=== PATIENT | male | born 1980 | race Caucasian/White ===

== ENCOUNTER 2025-02-23 17:17 | Inpatient (IN) | payer SELFPAY ==
[~2025-02-23] VITALS: Ht 177.8 cm; Wt 181.8 kg
[2025-02-23 17:39] LABS: BASOPHILS # (AUTO) 0.1 X10'3 (0-0.2); BASOPHILS % (AUTO) 0.6 % (0-1); EOSINOPHILS % (AUTO) 0.4 % (0-6); HEMATOCRIT 46.9 % (42.0-52.0); HEMOGLOBIN 15.4 g/dl (14.0-17.9); LYMPHOCYTES # (AUTO) 1.7 X10'3 (1.1-4.8); MEAN CORPUSCULAR HEMOGLOBIN 26.4 PG (27.0-31.0); MEAN CORPUSCULAR HGB CONC 32.8 g/dL (33.0-36.5); MEAN CORPUSCULAR VOLUME 80.5 FL (78-98); MEAN PLATELET VOLUME 8.8 FL (7.4-10.4); MONOCYTES # (AUTO) 0.8 X10'3 (0-0.9); MONOCYTES % (AUTO) 8.9 % (2-12); NEUTROPHILS # (AUTO) 6.7 X10'3 (1.8-7.7); NEUTROPHILS % (AUTO) 72.1 % (42-75); PLATELET COUNT 288 X10'3 (140-440); RED BLOOD COUNT 5.82 X10'6 (4.70-6.10); RED CELL DISTRIBUTION WIDTH 15.1 % (11.5-14.5); WHITE BLOOD COUNT 9.3 X10'3 (4.5-11.0)
[2025-02-23 18:04] LABS: ALBUMIN 3.5 G/DL (3.4-5.0); ANION GAP 11 (8-16); BLOOD UREA NITROGEN 20 MG/DL (7-18); BUN/CREATININE RATIO 17.1 (10.0-20.0); CALCIUM 9.2 MG/DL (8.5-10.1); CHLORIDE 99 MMOL/L (99-107); CREATININE 1.17 MG/DL (0.60-1.10); GLUCOSE 155 MG/DL (70-104); POTASSIUM 4.4 MMOL/L (3.5-5.1); PRO BRAIN NATRIURETIC PEPTIDE < 30 PG/ML (0-125); SODIUM 137 MMOL/L (135-145); TOTAL CARBON DIOXIDE 26.7 MMOL/L (24-32); eCRCL 82 ML/MIN; eGFR 67 ML/MIN
--- NOTE | 2025-02-23 18:16 | ELECTROCARDIOGRAPH REPORT ---
[facility] Test Date: 2025-02-23 Test Time: 17:21:55 Pat Name: FATEMEH GRACE Department: EMERGENCY ROOM [id number] Room: Gender: M [employer]r: : 1980 Requested By: TIFFANY MONROE Order Number: [id number] Reading MD: Dr. Sanchez Appiah Measurements Intervals [place] Rate: 105 P: 53 MA: 149 QRS: -53 QRSD: 98 T: 56 QT: 338 QTc: 447 Interpretive Statements Sinus tachycardia Probable left atrial enlargement S1,S2,S3 pattern RSR' in V1 or V2, probably normal variant ST elev, probable normal early repol pattern Electronically Signed On 02-23-2025 18:46:[address] Sanchez Appiah Please click the below link to view image of tracing.
--- NOTE | 2025-02-23 18:34 | RADIOLOGY REPORT ---
EXAMINATION: Chest x-ray 1 view CLINICAL HISTORY: CP COMPARISON: None FINDINGS: Right costophrenic angle partially excluded. No dominant consolidations in the visualized lung butts . No definite pleural effusion or pneumothorax. The cardiomediastinal silhouette appears within bravo l limits given technique. IMPRESSION: Limited study. No acute cardiopulmonary findings as visualized.
--- NOTE | 2025-02-23 19:33 | Physician Documentation ---
History of Present Illness ~ Chief Complaint: Chest Pain Stated Complaint: "I JUST HAD A HEART ATTACK/FELL AND HIT HEAD" Time Seen by MD: 19:06 Mode of Arrival: Dropped Off HPI This is a 44-year-old male who reports history of a clot and my lung prese nting for two months of reported left-sided nonradiating chest pain that is worse with palpation. Patient is a poor historian and changes topic frequently not answering questions directly. Patient reports shortness of breath though when questioned on duration and aggravating factors patient reports just short of breath all the time. Patient reports that he was treated for the clot in my lung 2-3 months prior with a hospitalization of approximately nine days, patient reports he was on a drip. Patient reports that he has had multiple episodes of syncope as well with an unclear timeline. Medication Reconciliation Allergies: Coded Allergies: No Known Allergies (Unverified , 02/23/25) Miscellaneous Medications Home Med List (No Home Medications), (Reported) Past Medical History Past Medical History: Pulmonary Embolism Review of Systems ROS Left-sided nonradiating chest pain as stated above in the HPI, otherwise all systems are reviewed and negative. Physical Exam Vital Signs: Temperature: 98.4, Source: Temporal, Heart Rate: 97, Respiratory Rate: 22, BP: 138/97, Pulse Oximetry: 94, Weight: 181.820 Oxygen Flow Rate: 0 Physical Exam VITALS: Reviewed and as above. GENERAL: Nontoxic appearing, no apparent distress. RESPIRATORY: No increased work of breathing, no respiratory distress, speaking in full clear sentences, clear lung sounds in all butts CHEST: Tenderness elicited with palpation to left chest wall CV: Regular rate and rhythm no murmur BACK: No CVA tenderness GI: Soft, nondistended, non tender, no rebound, no guarding, bowel sounds present MUSCULOSKELETAL: SKIN: Warm and dry no rash NEURO: Alert and oriented times four, GCS 15 PSYCH: Bizarre mood and affect, no agitation, voicing no SI or HI Progress Progress Note 0013: I spoke with hospitalist resident Dr. Sargent who kindly accepts patient for admission Results/Orders Results/Orders Orders - KENNY MERCHANT TRAVEL PT Cta Chest Pe (02/23/25 22:14) Page Hospitalist (02/23/25 23:43) Fill Out Med Reconciliation (02/23/25 23:43) Completed Orders - KENNY MERCHANT TRAVEL PT D-Dimer (02/23/25 19:34) Normal Saline 1000ml (Sodium Chloride 10 (02/23/25 21:35) Cta Chest Pe (02/23/25 22:14) Iohexol 350mg/Ml 100ml (Omnipaque 350mg/ (02/23/25 22:20) Vital Signs 02/23/25 02/23/25 02/23/25 02/23/25 17:18 18:32 18:40 20:35 Temp 98.4 Pulse 110 97 96 Resp 16 18 22 30 B/P (MAP) 144/92 138/97 (111) 123/78 (93) Pulse Ox 98 94 95 O2 Flow Rate 0 0 0 02/23/25 02/23/25 21:46 23:57 Pulse 98 86 Resp 24 24 B/P (MAP) 148/74 (98) 167/72 (103) Pulse Ox 94 92 O2 Flow Rate 0 0 Laboratory Tests Test 02/23/25 17:28 02/23/25 19:55 White Blood Count 9.3 Red Blood Count 5.82 Hemoglobin 15.4 Hematocrit 46.9 Mean Corpuscular Volume 80.5 Mean Corpuscular Hemoglobin 26.4 L Mean Corpuscular Hemoglobin Concent 32.8 L Red Cell Distribution Width 15.1 H Platelet Count 288 Mean Platelet Volume 8.8 Neutrophils (%) (Auto) 72.1 Lymphocytes (%) (Auto) 18.0 L Monocytes (%) (Auto) 8.9 Eosinophils (%) (Auto) 0.4 Basophils (%) (Auto) 0.6 Neutrophils # (Auto) 6.7 Lymphocytes # (Auto) 1.7 Monocytes # (Auto) 0.8 Eosinophils # (Auto) 0.0 Basophils # (Auto) 0.1 CBC Comment D-Dimer 0.73 H D-Dimer Comment Sodium Level 137 Potassium Level 4.4 Chloride Level 99 Carbon Dioxide Level 26.7 Anion Gap 11 Blood Urea Nitrogen 20 H Creatinine 1.17 H Estimated GFR/1.73 m2 67 BUN/Creatinine Ratio 17.1 Glucose Level 155 H Calcium Level 9.2 Troponin I High Sensitivity 4 5 Pro-B-Type Natriuretic Peptide < 30 Albumin 3.5 Chemistry Comments Troponin I High Sens Percent Delta 25 Troponin I Hi Sens Absolute Change 1 EKG/XRAY/CT/US/VASC/MRI EKG : Additional Comment EKG at 1721 interpreted by myself as sinus tachycardia at a rate of 105, left axis deviation, nonspecific ST changes Chest X-Ray : Additional Comments Exam: CHEST,SINGLE VIEW EXAMINATION: Chest x-ray 1 view CLINICAL HISTORY: CP COMPARISON: None FINDINGS: Right costophrenic angle partially excluded. No dominant consolidations in the visualized lung butts. No definite pleural effusion or pneumothorax. The cardiomediastinal silhouette appears within normal limits given technique. IMPRESSION: Limited study. No acute cardiopulmonary findings as visualized. Electronically Signed by:NIKKO OLEARY MD Date & Time: 02/23/251831 Dictated by: NIKKO OLEARY MD Dictation date and time: 02/23/25 173 I have reviewed and agree with the radiology report. I have reviewed and interpreted the imaging as: No focal consolidation or pneumothorax CT : Impression CTA Chest with intravenous contrast INDICATION: CP and SOB COMPARISON: None TECHNIQUE: Multidetector spiral CTA of the chest was performed of the chest with intravenous contrast. PULMONARY ANGIOGRAPHY PROTOCOL was utilized using a bolus- tracking technique centered on the main pulmonary artery. Axial, coronal and s agittal multiplanar and MIP reformats were performed. Radiation Dose : 1. Chest: CTDI volume is 24.91 mGy. Dose-length product is 982.8 mGy*cm The dose indicators for CT are the volume Computed Tomography (CT) Dose Index (CTDIvol) and the Dose Length Product (DLP), and are measured in units of mGy and mGy-cm, respectively. These indicators are not patient dose, but values generated from the CT scanner acquisition factors. The report includes radiation exposure data for exposures received during this examination. Findings: Pulmonary artery: No pulmonary embolism The main pulmonary artery is enlarged, measuring 3.7 cm. The ascending thoracic aorta measures 3.1 cm. Lower neck: Normal thyroid. Lungs: No focal consolidation, pleural effusion or pneumothorax. Heart/Vascular Structures: Normal heart size. No pericardial effusion. Lymph Nodes: No adenopathy Musculoskeletal: No acute osseous abnormality. Soft tissues: Normal. Upper abdomen: Limited portions of the upper abdomen are unremarkable. IMPRESSION: 1. No pulmonary embolism. 2. No acute thoracic finding. 3. Dilated main pulmonary artery. Electronically Signed by:NITO SWEENEY MD Date & Time: 02/23/252308 Dictated by: NITO SWEENEY MD Dictation date and time: 02/23/252308 Heart Score: Heart Score Response (Comments) Value History Moderate Suspicious 1 EKG Repolarization Disturb 1 Age 45-64 1 Risk Factors 1 or 2 risk factors 1 Troponin Normal limit 0 Total 4 Medical Decision Making Findings This 44-year-old male presented with two months of left-sided chest pain, he did report history of PE, a CTA was performed and did not demonstrate evidence of pulmonary embolism however there was evidence of dilated pulmonary artery with concern for pulmonary hypertension. I believe patient would benefit from admission for rule out of pulmonary hypertension. Additionally while patient did not have elevated troponins chest pain was moderately suspicious and or some repolarization abnormalities on EKG given patient's risk factors his heart score is four additionally supporting admission for further risk stratification evaluation, management. Patient is hemodynamically stable and otherwise well- appearing in the emergency department. Inpatient team contacted and kindly accepts patient for admission. Differential Dx:Considerations: Include: angina, aortic dissection, chest wall pain, cholelithiasis, CHF, costochondritis, gastritis, herpes zoster, myocardial infarction, pericarditis, pancreatitis, pneumonia, pneumothorax, pulmonary embolus Departure Disposition: 09 ADMITTED INPATIENT Admitted to Inpatient Unit: to hospitalist Impression: Primary Impression: Chest pain Qualified Codes: R07.9 - Chest pain, unspecified Condition: Guarded Referrals: NO PRIMARY CARE PROVIDER (PCP) Education Educated: Patient Educated regarding: diagnosis, prognosis Signature Scribe Signature: No scribe Attestation: The note accurately reflects work and decisions made by me.TYSON Lew 02/24/25 01:21 KENNY MERCHANT Feb 23, 2025 19:33
[2025-02-23 20:00] LABS: D-DIMER 0.73 MG/L FEU (0-0.50)
[2025-02-23] MEDS: normal saline 1000ML IV soln IVB ONE (21:45)
[2025-02-23] MEDS ORDERED: iohexol 350MG/ML 100ml bottle IV ONE (22:20)
--- NOTE | 2025-02-23 23:11 | RADIOLOGY REPORT ---
CTA Chest with intravenous contrast INDICATION: CP and SOB COMPARISON: None TECHNIQUE: Multidetector spiral CTA of the chest was performed of the chest with intravenous contrast . PULMONARY ANGIOGRAPHY PROTOCOL was utilized using a bolus-tracking technique centered on the main p ulmonary artery. Axial, coronal and sagittal multiplanar and MIP reformats were performed. Radiation Dose : 1. Chest: CTDI volume is 24.91 mGy. Dose-length product is 982.8 mGy*cm The dose indicators for CT are the volume Computed Tomography (CT) Dose Index (CTDIvol) and the Dose Length Product (DLP), and are measured in units of mGy and mGy-cm, respectively. These indicators are not patient dose, but values generated from the CT scanner acquisition factors. The report includes radiation exposure data for exposures received during this examination. Findings: Pulmonary artery: No pulmonary embolism The main pulmonary artery is enlarged, measuring 3.7 cm. The ascending thoracic aorta measures 3.1 c m. Lower neck: Normal thyroid. Lungs: No focal consolidation, pleural effusion or pneumothorax. Heart/Vascular Structures: Normal heart size. No pericardial effusion. Lymph Nodes: No adenopathy Musculoskeletal: No acute osseous abnormality. Soft tissues: Normal. Upper abdomen: Limited portions of the upper abdomen are unremarkable. IMPRESSION: 1. No pulmonary embolism. 2. No acute thoracic finding. 3. Dilated main pulmonary artery.
[2025-02-24] VITALS (9 sets, daily range): BP systolic 113–144; BP diastolic 64–76; PULSE 80–102; RESP 18–23; TEMP 97.3–97.6; O2SAT 94–98
[2025-02-24] MEDS ORDERED: NO HOME MEDS (01:22)
[2025-02-24] MEDS ORDERED: magnesium Cl slow-release 64mg tablet PO PRN (01:45)
[2025-02-24] MEDS ORDERED: mag hydrox/Alum hydrox/simeth 30ml oral suspension PO PRN (01:45)
[2025-02-24] MEDS ORDERED: morphine 2 MG/ML inj. syringe IV PRN ×2 (01:45)
[2025-02-24] MEDS ORDERED: HYDROcodone/acetaminophen 5mg/325mg tablet PO PRN (01:45)
[2025-02-24] MEDS ORDERED: magnesium hydroxide 30ml (MOM) UD suspension PO PRN (01:45)
[2025-02-24] MEDS ORDERED: potassium Cl 20 mEq SR tablet PO PRN ×2 (01:45)
[2025-02-24] MEDS ORDERED: potassium Cl 40MEQ/1/2NS 520ml 520 ML IV PRN (01:45)
[2025-02-24] MEDS ORDERED: acetaminophen 325mg tablet PO PRN ×2 (01:45)
[2025-02-24] MEDS ORDERED: ondansetron/PF 4mg/2ml inj IV PRN (01:45)
[2025-02-24] MEDS ORDERED: nitroGLYCERIN 0.4mg SUBLingual tab SL PRN (01:45)
[2025-02-24] MEDS ORDERED: magnesium sulf-water 4G/100mL 100 ML IV PRN (01:45)
[2025-02-24] MEDS ORDERED: magnesium sulf-water 2g/50mL 50 ML IV PRN (01:45)
[2025-02-24] MEDS ORDERED: HYDROcodone/acetaminophen 10/325mg tab PO PRN (01:45)
--- NOTE | 2025-02-24 02:09 | HISTORY AND PHYSICAL-Residence ---
History & Physical Providers to CC Resident Creating Document: CORTEZ ZAMORANO RES ~ History of Present Illness Reason for Admit\Complaint: Chest pain History of Present Illness 44-year-old male (poor historian) with past medical history of obesity, GUSTAVO, pulmonary embolism presented to the ER with a chief complaints of left-sided chest pain for the past two months. Endorses chest pain over the left chest, nonradiating, rated five to 6/10 on not associated with syncope, diaphoresis, no aggravating and relieving factors. He do reports shortness of breath for most of the times without orthopnea and PND. He reports multiple episodes of syncope. He endorses that he had a feeling of heart attack and fell and hit head. Denied slurring of speech weakness, palpitations, deviation of angle of mouth, abdominal pain, abdominal distention. Discussed the code status with the patient and patient wants to be in full code. Allergies: Coded Allergies: No Known Allergies (Unverified , 02/23/25) Home Medications Home Medications Active Reported No Home Medications (Home Med List) Each Past Medical History Past Medical History Pulmonary embolism Past Surgical History Surgical History Comment Could not able to elicit. Past Social History Social History Comment He is a poor historian and could not able to recall his personal social history. ROS ROS reviewed in full and negative except for positive pertinent as in HPI Exam Vitals: Vital Signs Date Time Temp Pulse Resp B/P (MAP) Pulse Ox O2 Delivery O2 Flow Rate FiO2 02/23/25 23:57 86 24 167/72 (103) 92 0 02/23/25 17:18 98.4 General: GENERAL: Drowsy, sleepy. Nontoxic appearing, no apparent distress. Obese HEENT: No icterus, pallor, cyanosis. No JVD and carotid upstroke RESPIRATORY: No increased work of breathing, no respiratory distress, speaking in full clear sentences, clear lung sounds in all butts CHEST: Tenderness elicited with palpation to left chest wall. CV: Regular rate and rhythm no murmur/gallop/rubs BACK: No CVA tenderness GI: Soft, nondistended, non tender, no rebound, no guarding, bowel sounds present MUSCULOSKELETAL: Left lower extremity with swelling. SKIN: Warm and dry no rash NEURO: No focal neurological deficits PSYCH: Bizarre mood and affect, no agitation, voicing no SI or HI Diagnostic Data Last Recorded Lab Results: 6/28/25 1728 02/23/25 1728 Diagnostic Data: Laboratory Tests Test 02/23/25 17:28 D-Dimer 0.73 MG/L FEU (0-0.50) H D-Dimer Comment Advance Care Planning Advanced Care planning: Add on additional 30 min Additional Plan Chest pain likely secondary to unstable angina Vitals are stable but blood pressure is a little bit on higher side 150s to 160s. EKG sinus tachycardia with a heart rate of105, left axis deviation, nonspecific ST changes Troponins are negative ProBNP is less than 30 Chest x-ray is normal CT angiography was done in the ER with a suspicious for pulmonary embolism in view of elevated D-dimer and previous history of pulmonary embolism-normal steady but with pulmonary artery hypertension. On nitro, aspirin 81 mg, atorvastatin Patient needs the Lexiscan and shank stapler consultation in the a.m. Patient is in NPO and we Ordered Lexiscan. We will follow up with the results On morphine for pain management Code status: Full code DVT prophylaxis: SubQ heparin PT: Ordered Progress: Guarded Cortez Zamorano IM resident I discussed the case with the resident team I do not have a good explanation for the syncope episodes, the somnolence and the frequent falls I have asked for a CT Head SKIP, An ABG and Utox, TSH and echocardiogram We will re evaluate based on the results Date of Service: Feb 24, 2025 Billing Provider: BEBA SÁNCHEZ MD, VENKATESH, RES Feb 24, 2025 02:09 BEBA SÁNCHEZ MD Feb 24, 2025 04:34
[2025-02-24] MEDS: aspirin 325mg tablet PO ONE (02:31)
[2025-02-24] MEDS: atorvastatin 20mg tablet PO SCH (02:32)
[2025-02-24 02:54] LABS: APTT 26 SECONDS (22-32); PROTHROMBIN TIME 10.6 SECONDS (9.0-12.0)
[2025-02-24 02:59] LABS: HEMOGLOBIN A1C 5.9 % (4.5-6.2)
[2025-02-24 03:02] LABS: PHOSPHORUS 4.7 MG/DL (2.3-4.5)
[2025-02-24 05:11] LABS: ABG BASE EXCESS 0.8 mmol/L (-2.0-3.0); ABG HCO3 27.4 mmol/L (21.0-28.0); ABG OXYGEN SATURATION 97.1 % (94.0-98.0); ABG PCO2 (T) 51.3 mmHg (35.0-48.0); ABG PH (T) 7.346 (7.350-7.450); ALLEN'S TEST Modified; FCOHb 0.4 % (0.5-1.5); FHHb 2.9 % (0.0-5.0); FO2Hb 96.7 % (94.0-98.0); TOTAL HEMOGLOBIN 15.1 G/dl (13.5-17.5)
--- NOTE | 2025-02-24 06:52 | RADIOLOGY REPORT ---
EXAM: CT CT HEAD INDICATION: Altered mental state TECHNIQUE: CT of the head without intravenous contrast. Radiation Dose : 1. Head: CT Dose: CTDI volume is 67.33 mGy. Dose-length product is 1269.81 mGy*cm The dose indicators for CT are the volume Computed Tomography (CT) Dose Index (CTDIvol) and the Dose Length Product (DLP), and are measured in units of mGy and mGy-cm, respectively. These indicators are not patient dose, but values generated from the CT scanner acquisition factors. The report includes radiation exposure data for exposures received during this examination. COMPARISON: None FINDINGS: There is no evidence of acute intracranial hemorrhage, extra-axial collection, mass effect, midline s hift, herniation or hydrocephalus. The ventricles, sulci and cisterns are age appropriate. The tucker-white differentiation is intact. The visualized paranasal sinuses and mastoid air cells are clear. The surrounding soft tissues and osseous structures are unremarkable. IMPRESSION: 1. No acute intracranial abnormality. Radiation optimization: All CT scans at this facility use at least one of these dose optimization shanique hniques: automated exposure control mA and/or kV adjustment per patient size (includes targeted exam s where dose is matched to clinical indication) or iterative reconstruction.
[2025-02-24] MEDS: K and/or MAG REPLACEMENT MC SCH (08:00)
[2025-02-24] MEDS: heparin, porcine 5000 units/ml vial SQ SCH (08:00)
[2025-02-24] MEDS: docusate sod 100mg capsule PO SCH (08:00)
--- NOTE | 2025-02-24 10:47 | PROGRESS NOTE- Residence ---
Progress Note - Resident Providers to CC Resident Creating Document: WALI FERNANDES CC: JUANITA NÚÑEZ MD ~ Antibiotic Timeout Antibiotic Ordered?: No Subjective Patient was seen and examined at bedside this morning. Patient is psychotic, stating that an entity was trying to help him with his blood clots and "pushed too hard on his blood vessels", he states he needs food for his "electrical system". He is very reluctant to stay in NPO, I spent several minutes explaining the need of the Lexiscan and the need to stay NPO for now. At the end he seemed to partially understand. Denied chest pain at the moment Objective Vital Signs Date Time Temp Pulse Resp B/P (MAP) Pulse Ox O2 Delivery O2 Flow Rate FiO2 02/24/25 07:38 86 02/24/25 07:15 20 94 Room Air* 0 21 02/24/25 04:40 112/76 (88) 02/23/25 17:18 98.4 Result Diagram: 02/23/25 1728 02/24/25 0213 General: Morbidly obese, awake, alert, significantly agitated and poorly cooperative HEENT: No pallor present, no icterus, moist mucous membranes Neck: No masses and tenderness Resp: Unlabored. Lungs clear to auscultation bilaterally. Chest: Normal expansion Cardiovascular: Regular Rate and rhythm, normal S1 and S2 without murmur, rub or gallop Abdomen: Soft and nontender, no organomegaly, no guarding and rigidity, bowel sounds present Neuro: No focal weakness in the upper and lower limb muscles, power of the muscles 5/5 bilateral upper and lower extremities, normal reflexes bilaterally. Cranial nerves intact Extremities: Left lower extremity discoloration and scabs. No cyanosis,clubbing or edema Skin: Warm and Dry. No lesions Psych: Psychotic, disorganized speech Coagulation Studies Laboratory Tests Test 02/23/25 17:28 02/24/25 02:13 D-Dimer 0.73 MG/L FEU (0-0.50) H D-Dimer Comment Prothrombin Time 10.6 SECONDS (9.0-12.0) INR International Normalized Ratio 1.0 INR Activated Partial Thromboplast Time 26 SECONDS (22-32) Coagulation Comments Plan Plan Chest pain, possible unstable angina History of PE. Acute PE ruled out Possible pulmonary hypertension Vitals are stable No chest pain at the moment EKG sinus tachycardia with a heart rate of105, left axis deviation, nonspecific ST changes Troponins are negative ProBNP is less than 30 Chest x-ray is normal CT angiography ruled out pulmonary embolism. However, did show dilated pulmonary artery Continue nitro p.r.n., aspirin 81 mg, atorvastatin Awaiting Lexiscan/echocardiogram Continue NPO. Okay to eat if Lexiscan is going to take more than 4 hours to be performed On morphine for pain management Psychosis Patient is psychotic with disorganized speech May need psychiatry evaluation once medically cleared Code status: Full code DVT prophylaxis: SubQ heparin PT: Ordered Progress: Guarded Disposition: Continue care in PCU with tele monitoring. Pending Christen Zarate MD Internal Medicine Resident PGY-1 Date of Service: Feb 24, 2025 Billing Provider: JUANTIA NÚÑEZ MD, LEONARDO LUIS Feb 24, 2025 10:47
--- NOTE | 2025-02-24 19:07 | CARDIOLOGY REPORT ---
APPROVED REPORT EXAM: Comprehensive 2D, Doppler, and color-flow Echocardiogram. Patient Location: [address] Heart Rate: 90's bpm Rhythm: SINUS Indications ANGINA [employer] Specialist: NONE Previous echo: NONE 2D Dimensions LVOT Diameter 2.38 (1.8-2.4cm) M-Mode Dimensions Aortic Root 3.12 (2.2-3.7cm) Aortic Valve AoV Peak Alvarez. 160.2 cm/s AoV VTI 23.6 cm AO Peak GR. 10.3 mmHg AO Mean GR. 6 mmHg LVOT VTI 21.01 cm LVOT Peak Alvarez. 134.9 cm/s ANSHU(VTI)/BSA 3.95 cm2/m2 ANSHU (VTI) 3.95 cm2 Mitral Valve MV E Velocity 107.9 cm/s MV Peak Gr. 2 mmHg MV DECEL TIME 188 ms MV A Velocity 81.4 cm/s MV PHT 72 ms E/A Ratio 1.3 MVA (PHT) 3.06 cm2 MV VMax76.5 cm/s LEFT VENTRICLE Grossly normal appearing LV size and wall thickness. Overall systolic function is normal. LVEF is 60% . RIGHT VENTRICLE RV appears grossly normal in size and function. ATRIA The left atrium size appears grossly normal. AORTIC VALVE Probable trileaflet AV appears midly sclerotic without stenosis. No insufficiency. MITRAL VALVE Mild MV annular calcification without stenosis. Trace regurgitation. TRICUSPID VALVE TV appears structurally normal with trace regurgitation. PULMONIC VALVE Normal PV without stenosis, no insufficiency. GREAT VESSELS The aortic root is normal in size. IVC is normal in size and collapses greater than 50% with inspirat ion. PERICARDIUM Normal pericardium. No effusion. Other Information Study Quality: Technically Difficult due to poor imaging windows and body habitus
[2025-02-25 00:05] VITALS: PULSE 80; RESP 18; O2SAT 95
[2025-02-25 02:00] VITALS: PULSE 95
[2025-02-25 06:37] LABS: BASOPHILS # (AUTO) 0.1 X10'3 (0-0.2); EOSINOPHILS # (AUTO) 0.1 X10'3 (0-0.9); EOSINOPHILS % (AUTO) 1.5 % (0-6); HEMATOCRIT 42.7 % (42.0-52.0); LYMPHOCYTES # (AUTO) 1.6 X10'3 (1.1-4.8); LYMPHOCYTES % (AUTO) 24.7 % (21-51); MEAN CORPUSCULAR HEMOGLOBIN 26.7 PG (27.0-31.0); MEAN CORPUSCULAR HGB CONC 32.8 g/dL (33.0-36.5); MEAN CORPUSCULAR VOLUME 81.4 FL (78-98); MEAN PLATELET VOLUME 8.6 FL (7.4-10.4); MONOCYTES # (AUTO) 0.7 X10'3 (0-0.9); MONOCYTES % (AUTO) 11.4 % (2-12); NEUTROPHILS # (AUTO) 3.9 X10'3 (1.8-7.7); NEUTROPHILS % (AUTO) 61.4 % (42-75); PLATELET COUNT 226 X10'3 (140-440); RED BLOOD COUNT 5.25 X10'6 (4.70-6.10); RED CELL DISTRIBUTION WIDTH 14.8 % (11.5-14.5); WHITE BLOOD COUNT 6.3 X10'3 (4.5-11.0)
[2025-02-25 06:56] LABS: ALANINE AMINOTRANSFERASE 42 U/L (12-78); ALBUMIN 2.9 G/DL (3.4-5.0); ALBUMIN/GLOBULIN RATIO 0.8 (1.1-1.5); ALKALINE PHOSPHATASE 60 IU/L (46-116); ANION GAP 5 (8-16); ASPARTATE AMINO TRANSFERASE 21 U/L (10-37); BILIRUBIN,TOTAL 0.2 MG/DL (0.1-1.0); BLOOD UREA NITROGEN 16 MG/DL (7-18); BUN/CREATININE RATIO 21.6 (10.0-20.0); CALCIUM 8.2 MG/DL (8.5-10.1); CHLORIDE 102 MMOL/L (99-107); CHOLESTEROL 125 MG/DL (0-200); CREATININE 0.74 MG/DL (0.60-1.10); GLUCOSE 102 MG/DL (70-104); HDL CHOLESTEROL 42 MG/DL (35-60); LDL CHOLESTEROL 66 MG/DL (50-100); POTASSIUM 4.5 MMOL/L (3.5-5.1); SODIUM 140 MMOL/L (135-145); TOTAL CARBON DIOXIDE 32.9 MMOL/L (24-32); TOTAL PROTEIN 6.7 G/DL (6.4-8.2); TRIGLYCERIDES 131 MG/DL (20-135); eCRCL 130 ML/MIN; eGFR > 90 ML/MIN
[2025-02-25] MEDS: aspirin 81mg, enteric-coated 1 TAB TABLET.DR PO SCH (07:11)
[2025-02-25 08:00] VITALS: RESP 16; O2SAT 96
[2025-02-25 10:58] VITALS: BP 145/85; PULSE 88; RESP 16; TEMP 97.1; O2SAT 96
[2025-02-25] MEDS ORDERED: metoprolol succinate 25mg (24-HOUR) SR. Tablet PO SCH (12:25)
[2025-02-25] MEDS ORDERED: ASPI-1071 PO (12:43)
[2025-02-25] MEDS ORDERED: ATOR40TA72 PO (12:43)
[2025-02-25] MEDS ORDERED: METO-395 PO (12:43)
[2025-02-25] MEDS ORDERED: NITR0.4T51 SL (12:43)
--- NOTE | 2025-02-25 19:35 | DISCHARGE SUMMARY-Residence ---
Discharge Summary Providers to CC Resident Creating Document: KRYSTLE MOSCOSOMARKUSWALINORMA YOUNG CC: JUANITA NÚEÑZ MD ~ Discharge Summary Admission Diagnosis: CHEST PAIN Hospital Course DATE OF ADMISSION: 02/24/2025 DATE OF DISCHARGE: 02/25/2025 Discharge Diagnosis\Comment: Chest pain, likely noncardiac Possible stable angina ACS ruled out History of PE. Acute PE ruled out Possible pulmonary hypertension Possible psychosis Noncompliance Operations\Procedures: None Consultants: None Complications: None Condition on DC: Stable New Medications: Aspirin (Ecotrin*) 81 Mg Tablet.dr 1 TAB PO DAILY for 30 Days, #30 TAB.SR Atorvastatin Calcium (Atorvastatin Calcium) 40 Mg Tablet 1 TAB PO DAILY for 30 Days, #30 TAB 0 Refills Metoprolol Succinate (Metoprolol Succinate) 25 Mg Tab.sr.24h 25 MG PO DAILY for 30 Days, #30 TAB.SR Nitroglycerin SL* (Nitrostat SL*) 0.4 Mg Tablet 0.4 MG SL Q5MIN PRN for chest pain for 30 Days, #30 TAB Continued Medications: Home Med List (No Home Medications) Each Discharge Summary: Patient was admitted with the following HPI: 44-year-old male (poor historian) with past medical history of obesity, GUSTAVO, pulmonary embolism presented to the ER with a chief complaints of left-sided chest pain for the past two months. Endorses chest pain over the left chest, nonradiating, rated five to 6/10 on not associated with syncope, diaphoresis, no aggravating and relieving factors. He do reports shortness of breath for most of the times without orthopnea and PND. He reports multiple episodes of syncope. He endorses that he had a feeling of heart attack and fell and hit head. Denied slurring of speech weakness, palpitations, deviation of angle of mouth, abdominal pain, abdominal distention. Discussed the code status with the patient and patient wants to be in full code. Hospital course: Patient was admitted to rule out ACS and pulmonary embolism. CTA showed no signs of pulmonary embolism, EKG was unremarkable and troponins were normal. Patient was scheduled for a Lexiscan, however, on the day of the study patient refused. Patient remained hemodynamically stable and asymptomatic during hospital course. He will be discharged with medical management. Laboratory Tests Test 02/23/25 19:55 02/24/25 02:13 02/24/25 05:06 02/25/25 06:24 Troponin I High Sensitivity 5 ng/L Troponin I High Sens Percent Delta 25 % Troponin I Hi Sens Absolute Change 1 ng/L Prothrombin Time 10.6 SECONDS INR International Normalized Ratio 1.0 INR Activated Partial Thromboplast Time 26 SECONDS Coagulation Comments Potassium Level 4.0 MMOL/L 4.5 MMOL/L Hemoglobin A1c 5.9 % Phosphorus Level 4.7 MG/DL Magnesium Level 2.0 MG/DL Blood Gas Specimen Type Arterial Blood Gas Puncture Site Rb O2 Saturation 97.1 % Arterial Blood pH (Temp corrected) 7.346 Arterial Blood pCO2 (Temp correct) 51.3 mmHg Arterial Blood pO2 (Temp corrected) 99.0 mmHg Arterial Blood PO2/FiO2 Ratio 3.54 mmHg/% Arterial Blood HCO3 27.4 mmol/L Arterial Blood Base Excess 0.8 mmol/L Arterial Blood Oxyhemoglobin 96.7 % Arterial Blood Carboxyhemoglobin 0.4 % Arterial Blood Methemoglobin 0.0 % Arterial Blood Deoxyhemoglobin 2.9 % Kalyan Test Modified Blood Gas Hemoglobin 15.1 G/dl Blood Gas Temperature 37.0 FiO2 28.0 mmHg/% Blood Gas Critical Value Called To nurse White Blood Count 6.3 X10'3 Red Blood Count 5.25 X10'6 Hemoglobin 14.0 g/dl Hematocrit 42.7 % Mean Corpuscular Volume 81.4 FL Mean Corpuscular Hemoglobin 26.7 PG Mean Corpuscular Hemoglobin Concent 32.8 g/dL Red Cell Distribution Width 14.8 % Platelet Count 226 X10'3 Mean Platelet Volume 8.6 FL Neutrophils (%) (Auto) 61.4 % Lymphocytes (%) (Auto) 24.7 % Monocytes (%) (Auto) 11.4 % Eosinophils (%) (Auto) 1.5 % Basophils (%) (Auto) 1.0 % Neutrophils # (Auto) 3.9 X10'3 Lymphocytes # (Auto) 1.6 X10'3 Monocytes # (Auto) 0.7 X10'3 Eosinophils # (Auto) 0.1 X10'3 Basophils # (Auto) 0.1 X10'3 CBC Comment Sodium Level 140 MMOL/L Chloride Level 102 MMOL/L Carbon Dioxide Level 32.9 MMOL/L Anion Gap 5 Blood Urea Nitrogen 16 MG/DL Creatinine 0.74 MG/DL Estimated GFR/1.73 m2 > 90 ML/MIN BUN/Creatinine Ratio 21.6 Glucose Level 102 MG/DL Calcium Level 8.2 MG/DL Total Bilirubin 0.2 MG/DL Aspartate Amino Transf (AST/SGOT) 21 U/L Alanine Aminotransferase (ALT/SGPT) 42 U/L Alkaline Phosphatase 60 IU/L Total Protein 6.7 G/DL Albumin 2.9 G/DL Globulin 3.8 G/DL Albumin/Globulin Ratio 0.8 Triglycerides Level 131 MG/DL Cholesterol Level 125 MG/DL LDL Cholesterol 66 MG/DL HDL Cholesterol 42 MG/DL Cholesterol/HDL Ratio 3.0 Chemistry Comments Discharge physical exam: Vital Signs Date Time Temp Pulse Resp B/P (MAP) Pulse Ox O2 Delivery O2 Flow Rate FiO2 02/25/25 10:58 97.1 88 16 145/85 (105) 96 Room Air 02/25/25 00:05 0 21 General: Morbidly obese, awake, alert and oriented HEENT: No pallor present, no icterus, moist mucous membranes Neck: No masses and tenderness Resp: Unlabored. Lungs clear to auscultation bilaterally. Chest: Normal expansion Cardiovascular: Regular Rate and rhythm, normal S1 and S2 without murmur, rub or gallop Abdomen: Soft and nontender, no organomegaly, no guarding and rigidity, bowel sounds present Neuro: No focal weakness in the upper and lower limb muscles, power of the muscles 5/5 bilateral upper and lower extremities, normal reflexes bilaterally. Cranial nerves intact Extremities: Left lower extremity discoloration and scabs. No cyanosis,clubbing or edema Skin: Warm and Dry. No lesions Psych: Slightly agitated but cooperative with care Disposition: Patient will be discharged with the following recommendations: Please continue all medications as prescribed You need to find a PCP and follow up within one week as you will need refills for your meds Return to the ED if any increasing chest pain, shortness of breath, palpitations, or any other concerning symptoms *Problems/Diagnosis: (1) Chest pain Status: Acute (2) Stable angina Total Time Spent on D/C: > 30 Minutes Date of Service: Feb 25, 2025 Billing Provider: JUANITA NÚÑEZ MD Problem Qualifiers (1) Chest pain: Chest pain type: unspecified Qualified Codes: R07.9 - Chest pain, unspecified KRSYTLE REINOSOWALI LUIS Feb 25, 2025 19:34
== END 2025-02-25 12:50 | disposition left against medical advice (07) | DRG 311 ==
LOC: ER 17:18 → ED HOLD 02-24 00:15 → PCU 3S 02-24 06:58
PROVIDERS: ADMIT Internal Medicine; ATTEND Family Medicine
PROC: B32T1ZZ Computerized Tomography (CT Scan) of Left Pulmonary Artery using Low Osmolar Contrast (ICD-10-PCS; principal; 2025-02-23)
PROC: B3201ZZ Computerized Tomography (CT Scan) of Thoracic Aorta using Low Osmolar Contrast (ICD-10-PCS; 2025-02-23)
PROC: B32S1ZZ Computerized Tomography (CT Scan) of Right Pulmonary Artery using Low Osmolar Contrast (ICD-10-PCS; 2025-02-23)
DX: I20.89 Other forms of angina pectoris (principal); Z68.43 Body mass index [BMI] 50.0-59.9, adult; E66.9 Obesity, unspecified; G47.33 Obstructive sleep apnea (adult) (pediatric); F29 Unspecified psychosis not due to a substance or known physiological condition; I27.20 Pulmonary hypertension, unspecified; Z53.29 Procedure and treatment not carried out because of patient's decision for other reasons; Z79.899 Other long term (current) drug therapy; Z86.711 Personal history of pulmonary embolism; Z91.199 Patient's noncompliance with other medical treatment and regimen due to unspecified reason
CPT/HCPCS: 36415; 36600; 70450; 71045; 71275; 80048; 80053; 80061; 82803; 83036; 83735; 83880; 84100; 84132; 84484; 85018; 85025; 85379; 85610; 85730; 87081; 93005; 93306; 94660; 94760; G0378; J7030; Q9967